=== PATIENT | female | born 1935 | race Caucasian/White ===

== ENCOUNTER 2016-06-12 10:56 | Emergency (ER) | payer MEDICARE ==
[2016-06-12] MEDS ORDERED: IOPAMIDOL 370 (76%) 100 ML VIAL IV ONE (10:57)
[2016-06-12] MEDS ORDERED: LACTATED RINGERS 1,000 ML ONE (11:54)
[2016-06-12 12:10] LABS: ABSOLUTE NEUTROPHIL COUNT 9.3 K/mm3 (1.8-7.7); BASO % 0.3 % (0.2-1.0); EOS % 0.3 % (0.9-2.9); HEMATOCRIT 33.7 % (37.0-47.0); HEMOGLOBIN 10.6 gm/l (12.0-16.0); IMM NEUT # 0.1 K/mm3 (0-0.2); IMM NEUT% 0.6 % (0-1); LYMPH # 0.3 (1.0-4.8); LYMPH % 2.5 % (15-45); MEAN CELL VOLUME 103.1 fl (81.0-99.0); MEAN CORPUSCULAR HEMOGLOBIN 32.4 pg (27.0-31.0); MEAN CORPUSCULAR HGB CONC 31.5 g/dl (33.0-37.0); MEAN PLATELET VOLUME 9.6 fl (7.4-10.4); MONO % 9.6 % (4-12); NEUT % 86.7 % (43-75); PLATELET COUNT 253 K/mm3 (130-400); RED CELL DISTRIBUTION WIDTH 14.6 % (11.5-14.5)
[2016-06-12 12:30] LABS: ALBUMIN 3.4 gm/dL (3.5-5.7); CALCIUM 9.2 mg/dL (8.6-10.3)
--- NOTE | 2016-06-12 13:16 | CT ---
ABD/PELVIS W/ CON COMPARISON: CT abdomen pelvis with contrast, 05/19/2016 HISTORY: Suprapubic pain. Recent robotic hysterectomy. Technique: No oral contrast. Intravenous injection contrast 100 mL Isovue 370. Using a [employer] Pace Aquilion [address] scanner, images were obtained from the diaphragm to the floor the pelvis. An automated dose reduction technique was used to minimize patient radiation dose. Dose information: CTDIvol (mGy): 5.00 DLP(mGycm): 244.80 FINDINGS: Lung bases: Mild right pleural effusion with mild compressive atelectasis of the right lower lobe. Inferior mediastinum and heart: Coronary artery atherosclerosis. Large paraesophageal hiatal hernia. Liver: Normal. Gallbladder:Normal. Bile ducts: Normal. Pancreas: Normal. Spleen: Normal. Adrenal glands: Normal. Kidneys: Multiple simple cysts. No solid mass. No hydronephrosis or calcification. Ureters: Normal Urinary bladder: Normal. Uterus and adnexa: Status post hysterectomy with a large abscess, 9.2 cm transverse by 5.3 cm anterior posterior by 6.7 cm craniocaudal Blood vessels: Normal Lymph nodes: Normal Stomach: Large paraesophageal hiatal hernia. Duodenum: Normal Small intestine: Surgical anastomosis of the ileum in the right lower quadrant. Appendix: Not visible. Colon: Normal Abdominal wall and supporting musculature: Normal Bones: Advanced degenerative changes in the spine. No fracture. IMPRESSION: 1. At the hysterectomy site, 9.2 x 5.3 x 6.7 cm complex rim enhancing fluid collection, evidence of a abscess. 2. Incidentally noted mild right pleural effusion, coronary artery atherosclerosis, large paraesophageal hiatal hernia, multiple simple cysts of the kidneys, surgical anastomosis of the terminal ileum, not visible appendix, and advanced degenerative changes of the spine. The results were discussed with Drew Clark M.D., 06/12/2016 at 13:11
[2016-06-12] MEDS ORDERED: PIPERACILLIN-TAZO PREMIX BAG 50 ML IV ONE (13:54)
[2016-06-12] MEDS ORDERED: ONDANSETRON 4 MG/2ML 2 ML VIAL ONE (14:16)
== END 2016-06-12 14:54 | disposition short-term general hospital (02) ==
LOC: ED 10:56
DX: K65.1 Peritoneal abscess (principal); N93.9 Abnormal uterine and vaginal bleeding, unspecified; Z90.710 Acquired absence of both cervix and uterus
CPT/HCPCS: 83605; 85025; 80053; 74177; 96375; 99284; 96361 ×2; 96365; 51701; 99285; J2405; J2543; J7120; Q9967